=== PATIENT | female | born 1970 | race Caucasian/White ===

== ENCOUNTER 2017-07-06 07:24 | Emergency (ER) | payer OTHER ==
[~2017-07-06] VITALS: Ht 160 cm; Wt 90.9 kg
[~2017-07-06 07:24] MED LIST: 00186-0370-20 IH; ABILIFY2 MG PO; ALBUTEROL SULFAT3 M3 IH; ALBUTEROL0.09 MG/A3 IH; ALLEGRA 60MG TA60 MG PO; ALLEGRA180 MG PO; AMITIZA 8MCG8 MCG; AMITIZA24 MCG PO; AMITRIPTYLINE H75 M1 PO; AMITRIPTYLINE100 MG PO; AUGMENTIN 875 M1 TAB PO; AUGMENTIN XR 101 TER PO; AUGMENTIN875 MG/TAB PO; BENTYL 10MG10 MG/CAP PO; BENTYL 20MG20 MG/TAB PO; BETA BLOCKER; BUDESONIDE1 POW; BYSTOLIC PO; CARDIZEM 60MG T60 MG; CARDIZEM LA120 MG PO; CEFTIN500 MG PO; COMBIVENT INH14.7 GM IH; DEXILANT60 MG PO; FLONASE NASAL S16 GM NS; LEVAQUIN 5500 MG/TA1 PO; LEVOTHROID0.125 MG PO; LEVOXYL0.125 MG PO; LIORESAL 1010 MG/TAB; LORTAB 5/500 501 TAB PO; MUSCLE RELAXANT; MYCOSTATIN100000 U/1 TP; NEXIUM PO; NORCO 325 MG-51 TAB PO; PERCOCET 325 MG1 TA2 PO; PERCOCET 5/321 UDTAB PO; PHENERGAN 25 TA25 MG PO; PRILOSEC 20MG20 MG PO; PRILOSEC40 MG PO; PROVENTIL0.09 MG/A1 IH; REGLAN 10MG10 MG/TAB PO; RT ADVAIR 128 DISKUS IH; SEREVENT; SINGULAIR10 MG PO; TAMIFLU 75MG75 MG PO; TENORMIN 5050 MG/TAB PO; TENORMIN100 MG PO; TORADOL 10MG TA10 MG PO; TYLENOL #4 (1 UDTAB PO; ULTRAM 50MG TAB50 MG PO; VENTOLIN0.09 MG IH; XANAX 0.5MG0.5 MG PO; ZOFRAN 4MG T4 MG/TAB PO; ZOLOFT 50MG50 MG PO; [UNRECOGNIZED DRUG - OTHER]; [UNRECOGNIZED DRUG - OTHER]; [UNRECOGNIZED DRUG - REMARK]
[2017-07-06 07:27] VITALS: BP 121/75; PULSE 91; TEMP 98.2
[2017-07-06] MEDS ORDERED: TESSALON P100 MG/CAP PO (08:04)
== END 2017-07-06 08:35 | disposition home or self-care (01) ==
LOC: COL.ER 07:24
DX: J06.9 Acute upper respiratory infection, unspecified (principal); J45.909 Unspecified asthma, uncomplicated; Z79.51 Long term (current) use of inhaled steroids

== ENCOUNTER → 2017-07-22 | Outpatient (CLI) | payer OTHER ==
[~2017-07-22] MED LIST changes: +TESSALON P100 MG/CAP PO
== END ==
LOC: BHSO 08:47
DX: F33.1 Major depressive disorder, recurrent, moderate (principal)

== ENCOUNTER → 2017-08-28 | Outpatient (CLI) | payer OTHER | LOC: BHSO 14:58 | DX: F33.0 Major depressive disorder, recurrent, mild (principal) ==

== ENCOUNTER → 2017-10-15 | Outpatient (CLI) | payer OTHER | LOC: BHSO 14:49 | DX: F41.1 Generalized anxiety disorder (principal) ==

== ENCOUNTER → 2017-11-12 | Outpatient (CLI) | payer OTHER | LOC: BHSO 10:53 | DX: F33.1 Major depressive disorder, recurrent, moderate (principal) ==

== ENCOUNTER → 2017-12-04 | Outpatient (CLI) | payer OTHER | LOC: BHSO 13:58 | DX: F33.1 Major depressive disorder, recurrent, moderate (principal) ==

== ENCOUNTER → 2017-12-11 | Outpatient (CLI) | payer OTHER | LOC: BHSO 13:56 | DX: F41.1 Generalized anxiety disorder (principal) ==

== ENCOUNTER → 2017-12-18 | Outpatient (CLI) | payer OTHER | LOC: BHSO 14:05 | DX: F33.1 Major depressive disorder, recurrent, moderate (principal) ==

== ENCOUNTER → 2018-01-01 | Outpatient (CLI) | payer OTHER | LOC: BHSO 14:56 | DX: F33.1 Major depressive disorder, recurrent, moderate (principal) ==

== ENCOUNTER → 2018-01-15 | Outpatient (CLI) | payer OTHER | LOC: BHSO 15:09 | DX: F33.0 Major depressive disorder, recurrent, mild (principal) ==

== ENCOUNTER → 2018-01-22 | Outpatient (CLI) | payer OTHER | LOC: BHSO 14:41 | DX: F41.1 Generalized anxiety disorder (principal) ==

== ENCOUNTER → 2018-02-05 | Outpatient (CLI) | payer OTHER | LOC: BHSO 15:06 | DX: F33.1 Major depressive disorder, recurrent, moderate (principal) ==

== ENCOUNTER → 2018-02-16 | Outpatient (CLI) | payer OTHER | LOC: BHSO 14:59 | DX: F33.1 Major depressive disorder, recurrent, moderate (principal) ==

== ENCOUNTER 2018-02-22 04:49 | Emergency (ER) | payer OTHER ==
[~2018-02-22] VITALS: Ht 160 cm; Wt 90.9 kg
[2018-02-22 04:56] VITALS: TEMP 97.7
[2018-02-22] MEDS ORDERED: CARDIZEM 30MG T30 MG PO (05:36)
[2018-02-22] MEDS ORDERED: BENTYL 10MG10 MG/CAP PO (05:37)
[2018-02-22] MEDS ORDERED: DEXILANT30 MG PO (05:37)
[2018-02-22] MEDS ORDERED: ALLEGRA 60MG TA60 MG PO (05:37)
[2018-02-22] MEDS ORDERED: VIIBRYD10 MG PO (05:37)
[2018-02-22] MEDS ORDERED: FIORICET 325 MG1 TA1 PO (05:38)
[2018-02-22] MEDS ORDERED: SOMA250 MG PO (05:39)
[2018-02-22] MEDS ORDERED: DECADRON 0.0.1 MG/ML PO (05:39)
[2018-02-22] MEDS ORDERED: BROVANA15 MCG/2 M IH (05:41)
[2018-02-22 05:50] LABS: BASO # 0.1 (0.0-0.2); BASO % 0.4 % (0.0-2.0); GRAN # 19.9 (1.4-6.5); GRAN % 79.4 % (42.2-75.2); HEMATOCRIT 39.6 % (37.0-47.0); HEMOGLOBIN 12.7 g/dl (12.5-16.0); LYMPH # 2.6 (1.2-3.4); LYMPH % 10.2 % (20.0-51.0); MEAN CELL VOLUME 93 fl (80.0-100.0); MEAN CORPUSCULAR HEMOGLOBIN 30 pg (27.0-31.0); MEAN CORPUSCULAR HGB CONC 32 g/dl (33.0-37.0); MEAN PLATELET VOLUME 9.4 fl (7.4-10.4); MONO # 1.6 (0.1-0.6); MONO % 6.2 % (1.7-9.3); PLATELET COUNT 365 K/mm3 (130-400); RED BLOOD COUNT 4.27 M/mm3 (4.10-5.30); REDCELL DISTRIBUTION WIDTH-CV 13.5 % (11.5-14.5)
[2018-02-22 06:07] LABS: C-REACTIVE PROTEIN 0.6 mg/dL (0.0-0.9); CALCIUM 9.7 mg/dL (8.4-10.2); CREATININE, serum 0.63 mg/dL (0.52-1.25); POTASSIUM 4.6 mmol/L (3.4-5.0)
[2018-02-22 06:41] LABS: BAND 4 % (0-10); LYMPHOCYTE 15 % (20.0-51.0); NEUTROPHILS 78 % (42.0-75.2)
[2018-02-22] MEDS ORDERED: PHENERGAN W/CO120 M1 PO (08:27)
[2018-02-22 08:59] VITALS: BP 125/80; PULSE 91
== END 2018-02-22 09:03 | disposition home or self-care (01) ==
LOC: COL.ER 04:49
PROVIDERS: Emergency Medicine
DX: J98.01 Acute bronchospasm (principal); F41.9 Anxiety disorder, unspecified; E03.9 Hypothyroidism, unspecified; Z98.890 Other specified postprocedural states
CPT/HCPCS: J1200; J2930; J7030; Q9967

== ENCOUNTER → 2018-03-05 | Outpatient (CLI) | payer OTHER, BC ==
[~2018-03-05] MED LIST changes: +BROVANA15 MCG/2 M IH; +CARDIZEM 30MG T30 MG PO; +DECADRON 0.0.1 MG/ML PO; +DEXILANT30 MG PO; +FIORICET 325 MG1 TA1 PO; +PHENERGAN W/CO120 M1 PO; +SOMA250 MG PO; +VIIBRYD10 MG PO
== END ==
LOC: BHSO 15:12
DX: F33.1 Major depressive disorder, recurrent, moderate (principal)

== ENCOUNTER → 2018-04-23 | Outpatient (CLI) | payer OTHER, BC | LOC: BHSO 13:56 | DX: F33.1 Major depressive disorder, recurrent, moderate (principal) ==

== ENCOUNTER → 2018-05-28 | Outpatient (CLI) | payer OTHER, BC | LOC: BHSO 14:19 | DX: F31.11 Bipolar disorder, current episode manic without psychotic features, mild (principal) ==

== ENCOUNTER → 2018-06-10 | Outpatient (CLI) | payer OTHER, BC | LOC: BHSO 13:58 | DX: F33.1 Major depressive disorder, recurrent, moderate (principal) ==

== ENCOUNTER 2018-07-10 19:08 | Emergency (ER) | payer BC, OTHER ==
[~2018-07-10] VITALS: Ht 160 cm; Wt 100.0 kg
[2018-07-10 19:16] VITALS: BP 128/79; PULSE 99; TEMP 98
== END 2018-07-10 21:39 | disposition left against medical advice (07) ==
LOC: COL.ER 19:08
DX: M25.552 Pain in left hip (principal)

== ENCOUNTER → 2018-07-17 | Outpatient (CLI) | payer BC, OTHER | LOC: BHSO 09:05 | DX: F31.11 Bipolar disorder, current episode manic without psychotic features, mild (principal) ==

== ENCOUNTER → 2018-07-31 | Outpatient (CLI) | payer BC, OTHER ==
[~2018-07-31] MED LIST changes: +ATARAX 25MG25 MG/TAB PO
== END ==
LOC: BHSO 13:04
DX: F31.11 Bipolar disorder, current episode manic without psychotic features, mild (principal)

== ENCOUNTER 2018-08-03 16:08 | Emergency (ER) | payer BC, OTHER ==
[~2018-08-03] VITALS: Ht 157.5 cm; Wt 81.8 kg
[~2018-08-03 16:08] MED LIST changes: -ATARAX 25MG25 MG/TAB PO
[2018-08-03 16:20] VITALS: TEMP 97
[2018-08-03 17:44] LABS: ALANINE AMINOTRANSFERASE 19 U/L (9-52); ALBUMIN 4.4 gm/dL (3.5-5.0); ALKALINE PHOSPHATASE 83 U/L (50-136); ANION GAP 11 mmol/L (7-16); AST,SGOT 28 U/L (15-37); BASO # 0.1 (0.0-0.2); BASO % 0.4 % (0.0-2.0); BILIRUBIN,TOTAL 0.7 mg/dL (0.0-1.0); BLOOD UREA NITROGEN 11 mg/dL (7-17); CALCIUM 10.2 mg/dL (8.4-10.2); CARBON DIOXIDE 26 mmol/L (22-30); CHLORIDE 104 mmol/L (98-107); CREATININE, serum 0.66 mg/dL (0.52-1.25); EOS # 0.1 (0.0-0.7); EOS % 0.6 % (0-4.0); GLUCOSE 105 mg/dL (74-106); GRAN # 10.5 (1.4-6.5); HEMATOCRIT 42.9 % (37.0-47.0); HEMOGLOBIN 14.4 g/dl (12.5-16.0); LYMPH # 3.7 (1.2-3.4); LYMPH % 24.4 % (20.0-51.0); MEAN CELL VOLUME 87 fl (80.0-100.0); MEAN CORPUSCULAR HEMOGLOBIN 29 pg (27.0-31.0); MEAN CORPUSCULAR HGB CONC 34 g/dl (33.0-37.0); MEAN PLATELET VOLUME 10.7 fl (7.4-10.4); MONO # 0.8 (0.1-0.6); MONO % 5.1 % (1.7-9.3); PLATELET COUNT 386 K/mm3 (130-400); POTASSIUM 3.6 mmol/L (3.4-5.0); RED BLOOD COUNT 4.94 M/mm3 (4.10-5.30); SODIUM 141 mmol/L (137-145); TOTAL PROTEIN 7.8 gm/dL (6.4-8.2)
[2018-08-03 18:04] LABS: TROPONIN-I < 0.012 ng/mL (0.000-0.035)
[2018-08-03] MEDS ORDERED: ATARAX 25MG25 MG/TAB PO (19:20)
[2018-08-03 19:31] VITALS: BP 115/76; PULSE 103
[2018-08-04] MEDS ORDERED: ATARAX 25MG25 MG/TAB PO (10:30)
== END 2018-08-03 19:31 | disposition home or self-care (01) ==
LOC: COL.ER 16:08
PROVIDERS: Physician Assistant
DX: R07.89 Other chest pain (principal); F41.9 Anxiety disorder, unspecified; K21.9 Gastro-esophageal reflux disease without esophagitis; E03.9 Hypothyroidism, unspecified; G43.909 Migraine, unspecified, not intractable, without status migrainosus; Z90.710 Acquired absence of both cervix and uterus; Z79.51 Long term (current) use of inhaled steroids
CPT/HCPCS: J2060; J7030

== ENCOUNTER → 2018-09-29 | Outpatient (CLI) | payer BC, OTHER ==
[~2018-09-29] MED LIST changes: +ATARAX 25MG25 MG/TAB PO
== END ==
LOC: BHSO 15:00
DX: F33.1 Major depressive disorder, recurrent, moderate (principal)

== ENCOUNTER → 2018-10-12 | Outpatient (CLI) | payer BC, OTHER | LOC: BHSO 15:04 | DX: F33.1 Major depressive disorder, recurrent, moderate (principal) ==

== ENCOUNTER → 2018-10-27 | Outpatient (CLI) | payer BC, OTHER ==
[~2018-10-27] MED LIST changes: +TESSALON PERLE200 MG PO
== END ==
LOC: BHSO 13:59
DX: F33.1 Major depressive disorder, recurrent, moderate (principal)

== ENCOUNTER 2018-11-01 22:51 | Emergency (ER) | payer BC, OTHER ==
[~2018-11-01] VITALS: Ht 157.5 cm; Wt 94.5 kg
[~2018-11-01 22:51] MED LIST changes: -TESSALON PERLE200 MG PO
[2018-11-01 22:53] VITALS: TEMP 98
[2018-11-02] MEDS ORDERED: TESSALON PERLE200 MG PO (01:23)
[2018-11-02 01:46] VITALS: BP 91/53; PULSE 110
== END 2018-11-02 01:46 | disposition home or self-care (01) ==
LOC: COL.ER 22:51
DX: J45.901 Unspecified asthma with (acute) exacerbation (principal); I10 Essential (primary) hypertension; Z90.710 Acquired absence of both cervix and uterus; Z98.51 Tubal ligation status; Z79.51 Long term (current) use of inhaled steroids
CPT/HCPCS: J1200; J2060; J3010; J3105; J7030

== ENCOUNTER → 2018-11-25 | Outpatient (CLI) | payer BC, OTHER ==
[~2018-11-25] MED LIST changes: +TESSALON PERLE200 MG PO
== END ==
LOC: COL.RAD 08:33
DX: K21.9 Gastro-esophageal reflux disease without esophagitis (principal); J38.3 Other diseases of vocal cords; Z98.890 Other specified postprocedural states

== ENCOUNTER → 2018-12-21 | Outpatient (CLI) | payer BC, OTHER | LOC: BHSO 13:57 | DX: F31.81 Bipolar II disorder (principal) ==

== ENCOUNTER → 2019-01-15 | Outpatient (CLI) | payer BC, OTHER | LOC: BHSO 14:00 | DX: F33.1 Major depressive disorder, recurrent, moderate (principal) ==

== ENCOUNTER → 2019-02-05 | Outpatient (CLI) | payer BC, OTHER | LOC: BHSO 15:56 | DX: F33.0 Major depressive disorder, recurrent, mild (principal) ==

== ENCOUNTER → 2019-02-17 | Outpatient (CLI) | payer BC, OTHER | LOC: BHSO 14:11 | DX: F31.81 Bipolar II disorder (principal) ==

== ENCOUNTER → 2019-02-26 | Outpatient (CLI) | payer BC, OTHER | LOC: BHSO 12:56 | DX: F33.0 Major depressive disorder, recurrent, mild (principal) ==

== ENCOUNTER → 2019-03-19 | Outpatient (CLI) | payer BC, OTHER | LOC: BHSO 14:12 | DX: F33.1 Major depressive disorder, recurrent, moderate (principal) ==

== ENCOUNTER → 2019-03-26 | Outpatient (CLI) | payer BC, OTHER | LOC: BHSO 13:59 | DX: F33.0 Major depressive disorder, recurrent, mild (principal) ==

== ENCOUNTER → 2019-04-14 | Outpatient (CLI) | payer BC, OTHER | LOC: BHSO 09:05 | DX: F33.1 Major depressive disorder, recurrent, moderate (principal) ==

== ENCOUNTER → 2019-06-10 | Outpatient (CLI) | payer BC, OTHER | LOC: BHSO 09:06 | DX: F33.1 Major depressive disorder, recurrent, moderate (principal) ==

== ENCOUNTER → 2019-06-25 | Outpatient (CLI) | payer BC, OTHER | LOC: BHSO 13:05 | DX: F33.1 Major depressive disorder, recurrent, moderate (principal) ==

== ENCOUNTER 2019-07-30 16:07 | Emergency (ER) | payer BC, OTHER | END 2019-07-30 16:16 | disposition left against medical advice (07) | LOC: COL.ER 16:07 | DX: Z72.9 Problem related to lifestyle, unspecified (principal); Z79.51 Long term (current) use of inhaled steroids ==

== ENCOUNTER 2019-07-31 15:49 | Emergency (ER) | payer BC, OTHER ==
[~2019-07-31] VITALS: Ht 157.5 cm; Wt 92.7 kg
[2019-07-31 16:41] LABS: COLLECTION METHOD CLEAN CATCH
[2019-07-31 16:45] LABS: BASO # 0.1 (0.0-0.2); BASO % 0.5 % (0.0-2.0); EOS # 0.4 (0.0-0.7); EOS % 3.4 % (0-4.0); GRAN # 8.1 (1.4-6.5); GRAN % 64.5 % (42.2-75.2); HEMATOCRIT 39.2 % (37.0-47.0); HEMOGLOBIN 12.7 g/dl (12.5-16.0); MEAN CELL VOLUME 88 fl (80.0-100.0); MEAN CORPUSCULAR HEMOGLOBIN 29 pg (27.0-31.0); MEAN CORPUSCULAR HGB CONC 32 g/dl (33.0-37.0); MEAN PLATELET VOLUME 9.7 fl (7.4-10.4); MONO # 0.8 (0.1-0.6); MONO % 6.6 % (1.7-9.3); PLATELET COUNT 315 K/mm3 (130-400); RED BLOOD COUNT 4.44 M/mm3 (4.10-5.30); REDCELL DISTRIBUTION WIDTH-CV 13.9 % (11.5-14.5)
[2019-07-31 16:48] LABS: MUCOUS Present /lpf; PH 6 (5-8); SQUAMOUS EPITHELIAL 0-2 /hpf; URINE APPEARANCE Clear; URINE BACTERIA None Seen /hpf; URINE BILIRUBIN Negative (NEGATIVE); URINE BLOOD Negative (NEGATIVE); URINE COLOR Yellow; URINE GLUCOSE Negative (NEGATIVE); URINE KETONE Negative (NEGATIVE); URINE LEUKOCYTE ESTERASE Negative (NEGATIVE); URINE NITRATE Negative (NEGATIVE); URINE PROTEIN(semi-quant) Negative (NEGATIVE); URINE RBC 0-2 /hpf; URINE UROBILINOGEN Negative (NEGATIVE)
[2019-07-31 16:50] LABS: ALBUMIN 4.3 gm/dL (3.5-5.0); BILIRUBIN,TOTAL 0.4 mg/dL (0.0-1.0); CALCIUM 9.7 mg/dL (8.4-10.2); CREATININE, serum 0.66 (0.52-1.25); POTASSIUM 4.2 mmol/L (3.4-5.0); TOTAL PROTEIN 7.5 gm/dL (6.4-8.2)
[2019-07-31 19:45] VITALS: BP 112/72; PULSE 76; TEMP 97.8
== END 2019-07-31 19:50 | disposition home or self-care (01) ==
LOC: COL.ER 15:49
PROVIDERS: Nurse Practitioner
DX: R07.89 Other chest pain (principal); R10.9 Unspecified abdominal pain; J45.909 Unspecified asthma, uncomplicated; Z79.51 Long term (current) use of inhaled steroids
CPT/HCPCS: J1200; J2930; Q9967

== ENCOUNTER → 2019-10-26 | Outpatient (CLI) | payer BC, OTHER | LOC: BHSO 14:00 → BHSTELE 14:00 | DX: F31.11 Bipolar disorder, current episode manic without psychotic features, mild (principal) ==

== ENCOUNTER → 2019-10-27 | Outpatient (CLI) | payer BC, OTHER | LOC: COL.RAD 08:30 | DX: R16.0 Hepatomegaly, not elsewhere classified (principal); Z90.710 Acquired absence of both cervix and uterus ==

== ENCOUNTER → 2019-11-17 | Outpatient (CLI) | payer BC, OTHER | LOC: BHSO 13:51 | DX: F33.1 Major depressive disorder, recurrent, moderate (principal) ==

== ENCOUNTER → 2019-12-24 | Outpatient (CLI) | payer BC, OTHER | LOC: BHSO 13:53 | DX: F31.11 Bipolar disorder, current episode manic without psychotic features, mild (principal) ==

== ENCOUNTER → 2020-01-21 | Outpatient (CLI) | payer BC, OTHER | LOC: BHSO 13:03 | DX: F33.1 Major depressive disorder, recurrent, moderate (principal) ==

== ENCOUNTER 2020-01-29 03:12 | Emergency (ER) | payer BC, OTHER ==
[~2020-01-29] VITALS: Ht 160 cm; Wt 93.2 kg
[2020-01-29 03:16] VITALS: TEMP 98.6
[2020-01-29] MEDS ORDERED: KLONOPIN WAFER0.5 MG PO (03:31)
[2020-01-29] MEDS ORDERED: KLONOPIN 0.5MG0.5 MG PO (04:14)
[2020-01-29 05:07] VITALS: BP 117/90; PULSE 83
== END 2020-01-29 05:07 | disposition home or self-care (01) ==
LOC: COL.ER 03:12
DX: M54.5 Low back pain (principal); I10 Essential (primary) hypertension; J45.909 Unspecified asthma, uncomplicated; E03.9 Hypothyroidism, unspecified; Z90.710 Acquired absence of both cervix and uterus; Z79.890 Hormone replacement therapy
CPT/HCPCS: J1100; J1885; J2060; J2270

== ENCOUNTER 2020-01-31 09:41 | Emergency (ER) | payer BC, OTHER ==
[~2020-01-31] VITALS: Ht 160 cm; Wt 93.2 kg
[~2020-01-31 09:41] MED LIST changes: +KLONOPIN 0.5MG0.5 MG PO; +KLONOPIN WAFER0.5 MG PO
[2020-01-31 11:17] LABS: HEMATOCRIT 41.8 % (37.0-47.0); HEMOGLOBIN 13.5 g/dl (12.5-16.0); MEAN CELL VOLUME 92 fl (80.0-100.0); MEAN CORPUSCULAR HEMOGLOBIN 30 pg (27.0-31.0); MEAN CORPUSCULAR HGB CONC 32 g/dl (33.0-37.0); PLATELET COUNT 297 K/mm3 (130-400); RED BLOOD COUNT 4.54 M/mm3 (4.10-5.30); REDCELL DISTRIBUTION WIDTH-CV 14.2 % (11.5-14.5)
[2020-01-31 11:29] LABS: ALBUMIN 4.1 gm/dL (3.5-5.0); BILIRUBIN,TOTAL 0.3 mg/dL (0.0-1.0); C-REACTIVE PROTEIN 0.8 mg/dL (0.0-0.9); CALCIUM 9.3 mg/dL (8.4-10.2); CREATININE, serum 0.7 (0.52-1.25); POTASSIUM 4.2 mmol/L (3.4-5.0); TOTAL PROTEIN 7.1 gm/dL (6.4-8.2)
[2020-01-31 11:57] LABS: LYMPHOCYTE 50 % (20.0-51.0); NEUTROPHILS 47 % (42.0-75.2); PLATELET ESTIMATE NORMAL (NORMAL)
[2020-01-31 11:58] LABS: ERYTHROCYTE SEDIMENTATION RATE 6 mm/hr (0-30)
[2020-01-31] MEDS ORDERED: PREDNISONE20 MG PO (12:19)
[2020-01-31] MEDS ORDERED: NORCO 325 MG-51 TAB PO (12:19)
[2020-01-31 12:30] VITALS: BP 134/72; PULSE 78; TEMP 97.6
[2020-01-31 12:53] LABS: COLLECTION METHOD CLEAN CATCH
[2020-01-31 13:00] LABS: PH 8 (5-8); SQUAMOUS EPITHELIAL None Seen /hpf; URINE APPEARANCE Clear; URINE BACTERIA None Seen /hpf; URINE BILIRUBIN Negative (NEGATIVE); URINE BLOOD Negative (NEGATIVE); URINE COLOR Straw; URINE GLUCOSE Negative (NEGATIVE); URINE KETONE Negative (NEGATIVE); URINE LEUKOCYTE ESTERASE Negative (NEGATIVE); URINE NITRATE Negative (NEGATIVE); URINE PROTEIN(semi-quant) Negative (NEGATIVE); URINE RBC 0-2 /hpf; URINE UROBILINOGEN Negative (NEGATIVE)
== END 2020-01-31 12:37 | disposition home or self-care (01) ==
LOC: COL.ER 09:41
PROVIDERS: Physician Assistant
DX: M54.5 Low back pain (principal); B34.9 Viral infection, unspecified; J45.909 Unspecified asthma, uncomplicated; K21.9 Gastro-esophageal reflux disease without esophagitis; Z90.710 Acquired absence of both cervix and uterus; Z87.891 Personal history of nicotine dependence; Z79.51 Long term (current) use of inhaled steroids; Z79.890 Hormone replacement therapy
CPT/HCPCS: J1885; J2270; J2405

== ENCOUNTER 2020-03-28 23:37 | Emergency (ER) | payer BC, OTHER ==
[~2020-03-28] VITALS: Ht 160 cm; Wt 97.7 kg
[~2020-03-28 23:37] MED LIST changes: +PREDNISONE20 MG PO
[2020-03-28 23:51] VITALS: TEMP 97.8
[2020-03-29 00:23] LABS: COLLECTION METHOD CLEAN CATCH
[2020-03-29 00:29] LABS: MUCOUS Present /lpf; PH 5 (5-8); SQUAMOUS EPITHELIAL 0-2 /hpf; URINE APPEARANCE Clear; URINE BACTERIA Rare /hpf; URINE BILIRUBIN Negative (NEGATIVE); URINE BLOOD Negative (NEGATIVE); URINE COLOR Straw; URINE GLUCOSE Negative (NEGATIVE); URINE KETONE Negative (NEGATIVE); URINE LEUKOCYTE ESTERASE Negative (NEGATIVE); URINE NITRATE Negative (NEGATIVE); URINE PROTEIN(semi-quant) Negative (NEGATIVE); URINE RBC 0-2 /hpf; URINE UROBILINOGEN Negative (NEGATIVE)
[2020-03-29] MEDS ORDERED: NORCO 325 MG-7.1 TAB PO (00:31)
[2020-03-29] MEDS ORDERED: VALIUM 2MG T2 MG/TAB PO (00:31)
[2020-03-29 01:45] VITALS: BP 107/72; PULSE 86
== END 2020-03-29 01:50 | disposition home or self-care (01) ==
LOC: COL.ER 23:37
PROVIDERS: Emergency Medicine
DX: M54.9 Dorsalgia, unspecified (principal); J45.909 Unspecified asthma, uncomplicated; Z90.710 Acquired absence of both cervix and uterus; Z88.2 Allergy status to sulfonamides; Z88.6 Allergy status to analgesic agent; Z88.1 Allergy status to other antibiotic agents; Z79.52 Long term (current) use of systemic steroids
CPT/HCPCS: J1170; J2060

== ENCOUNTER 2020-07-12 00:19 | Emergency (ER) | payer BC, OTHER ==
[~2020-07-12] VITALS: Ht 160 cm; Wt 104.1 kg
[~2020-07-12 00:19] MED LIST changes: +FLEXERIL 1010 MG/TAB PO; +NAPROSYN 2250 MG/TAB PO; +NORCO 325 MG-7.1 TAB PO; +ROBAXIN 50500 MG/TAB PO; +VALIUM 2MG T2 MG/TAB PO
[2020-07-12 00:24] VITALS: TEMP 98.1
[2020-07-12 01:05] LABS: BASO # 0.1 (0.0-0.2); BASO % 0.5 % (0.0-2.0); EOS # 0.1 (0.0-0.7); EOS % 1.1 % (0-4.0); GRAN # 7.8 (1.4-6.5); GRAN % 66.2 % (42.2-75.2); LYMPH # 3.2 (1.2-3.4); LYMPH % 26.9 % (20.0-51.0); MEAN CELL VOLUME 88 fl (80.0-100.0); MEAN CORPUSCULAR HEMOGLOBIN 29 pg (27.0-31.0); MEAN CORPUSCULAR HGB CONC 33 g/dl (33.0-37.0); MEAN PLATELET VOLUME 9.8 fl (7.4-10.4); MONO # 0.6 (0.1-0.6); MONO % 4.7 % (1.7-9.3); PLATELET COUNT 327 K/mm3 (130-400); RED BLOOD COUNT 4.45 M/mm3 (4.10-5.30); REDCELL DISTRIBUTION WIDTH-CV 12.8 % (11.5-14.5)
[2020-07-12 01:17] LABS: CALCIUM 10.1 mg/dL (8.4-10.2); CREATININE, serum 0.89 (0.52-1.25); POTASSIUM 4.3 mmol/L (3.4-5.0)
[2020-07-12 01:32] LABS: C-REACTIVE PROTEIN 0.7 mg/dL (0.0-0.9)
[2020-07-12 02:20] VITALS: BP 128/90; PULSE 70
== END 2020-07-12 02:32 | disposition home or self-care (01) ==
LOC: COL.ER 00:19
PROVIDERS: Emergency Medicine
DX: G43.909 Migraine, unspecified, not intractable, without status migrainosus (principal); J32.9 Chronic sinusitis, unspecified; J45.909 Unspecified asthma, uncomplicated; Z79.52 Long term (current) use of systemic steroids
CPT/HCPCS: J1100; J1200; J1885; J2765; J7030

== ENCOUNTER 2020-09-28 19:01 | Emergency (ER) | payer BC, OTHER ==
[~2020-09-28] VITALS: Ht 160 cm; Wt 107.7 kg
[2020-09-28 19:07] VITALS: TEMP 98.1
[2020-09-28 20:18] LABS: COLLECTION METHOD CLEAN CATCH
[2020-09-28 20:27] LABS: BASO # 0.1 (0.0-0.2); BASO % 0.5 % (0.0-2.0); EOS # 0.4 (0.0-0.7); EOS % 3.3 % (0-4.0); GRAN # 7.4 (1.4-6.5); GRAN % 57.3 % (42.2-75.2); HEMATOCRIT 40.5 % (37.0-47.0); HEMOGLOBIN 12.8 g/dl (12.5-16.0); LYMPH # 3.9 (1.2-3.4); LYMPH % 29.9 % (20.0-51.0); MEAN CELL VOLUME 85 fl (80.0-100.0); MEAN CORPUSCULAR HEMOGLOBIN 27 pg (27.0-31.0); MEAN CORPUSCULAR HGB CONC 32 g/dl (33.0-37.0); MEAN PLATELET VOLUME 10.1 fl (7.4-10.4); MONO % 7.8 % (1.7-9.3); PLATELET COUNT 428 K/mm3 (130-400); RED BLOOD COUNT 4.76 M/mm3 (4.10-5.30); REDCELL DISTRIBUTION WIDTH-CV 13.7 % (11.5-14.5)
[2020-09-28 20:29] LABS: PH 5 (5-8); SQUAMOUS EPITHELIAL 0-2 /hpf; URINE APPEARANCE Clear; URINE BACTERIA None Seen /hpf; URINE BILIRUBIN Negative (NEGATIVE); URINE BLOOD Negative (NEGATIVE); URINE COLOR Colorless; URINE GLUCOSE Negative (NEGATIVE); URINE KETONE Negative (NEGATIVE); URINE LEUKOCYTE ESTERASE Negative (NEGATIVE); URINE NITRATE Negative (NEGATIVE); URINE PROTEIN(semi-quant) Negative (NEGATIVE); URINE RBC 0-2 /hpf; URINE UROBILINOGEN Negative (NEGATIVE)
[2020-09-28 20:45] LABS: ALANINE AMINOTRANSFERASE 37 U/L (4-34); ALBUMIN 4.5 gm/dL (3.5-5.0); ALKALINE PHOSPHATASE 74 U/L (50-136); ANION GAP 9 mmol/L (7-16); AST,SGOT 44 U/L (15-37); BILIRUBIN,TOTAL < 0.1 mg/dL (0.0-1.0); BLOOD UREA NITROGEN 19 mg/dL (7-17); CALCIUM 9.8 mg/dL (8.4-10.2); CARBON DIOXIDE 27 mmol/L (22-30); CHLORIDE 103 mmol/L (98-107); CREATININE, serum 0.68 (0.52-1.25); GLUCOSE 96 mg/dL (74-106); LIPASE 59 U/L (23-300); POTASSIUM 4.2 mmol/L (3.4-5.0); SODIUM 139 mmol/L (137-145); TOTAL PROTEIN 7.8 gm/dL (6.4-8.2)
[2020-09-28 21:06] LABS: ACETAMINOPHEN < 10 ug/mL (10-30); ALCOHOL(ethanol),MEDICAL < 10 mg/dL; SALICYLATE < 1.0 mg/dL
[2020-09-28 23:55] VITALS: BP 124/76; PULSE 87
== END 2020-09-28 23:55 | disposition home or self-care (01) ==
LOC: COL.ER 19:01
PROVIDERS: Nurse Practitioner
DX: F32.9 Major depressive disorder, single episode, unspecified (principal); M25.531 Pain in right wrist; R05 Cough; R10.10 Upper abdominal pain, unspecified; J45.909 Unspecified asthma, uncomplicated; Z88.1 Allergy status to other antibiotic agents; Z88.2 Allergy status to sulfonamides; Z88.5 Allergy status to narcotic agent; Z88.6 Allergy status to analgesic agent; Z88.8 Allergy status to other drugs, medicaments and biological substances; Z79.51 Long term (current) use of inhaled steroids; Z79.890 Hormone replacement therapy; Z91.041 Radiographic dye allergy status
CPT/HCPCS: J1200; J2405; J2930; J7030; Q9967

== ENCOUNTER 2020-12-09 11:00 | Emergency (ER) | payer BC, OTHER ==
[~2020-12-09] VITALS: Ht 160 cm; Wt 95.5 kg
[2020-12-09 11:22] VITALS: TEMP 98.3
[2020-12-09 11:55] LABS: COLLECTION METHOD CLEAN CATCH
[2020-12-09 12:06] LABS: BASO # 0.1 (0.0-0.2); BASO % 0.4 % (0.0-2.0); EOS # 0.3 (0.0-0.7); EOS % 2.7 % (0-4.0); GRAN # 7.8 (1.4-6.5); GRAN % 68.4 % (42.2-75.2); HEMATOCRIT 40.1 % (37.0-47.0); HEMOGLOBIN 12.8 g/dl (12.5-16.0); LYMPH # 2.5 (1.2-3.4); LYMPH % 21.9 % (20.0-51.0); MEAN CELL VOLUME 83 fl (80.0-100.0); MEAN CORPUSCULAR HEMOGLOBIN 27 pg (27.0-31.0); MEAN CORPUSCULAR HGB CONC 32 g/dl (33.0-37.0); MONO # 0.7 (0.1-0.6); MONO % 5.9 % (1.7-9.3); PLATELET COUNT 341 K/mm3 (130-400); RED BLOOD COUNT 4.82 M/mm3 (4.10-5.30); REDCELL DISTRIBUTION WIDTH-CV 15.4 % (11.5-14.5)
[2020-12-09 12:06] LABS: PH 7 (5-8); SQUAMOUS EPITHELIAL 0-2 /hpf; URINE APPEARANCE Clear; URINE BACTERIA None Seen /hpf; URINE BILIRUBIN Negative (NEGATIVE); URINE BLOOD Negative (NEGATIVE); URINE COLOR Straw; URINE GLUCOSE Negative (NEGATIVE); URINE KETONE Negative (NEGATIVE); URINE LEUKOCYTE ESTERASE Negative (NEGATIVE); URINE NITRATE Negative (NEGATIVE); URINE PROTEIN(semi-quant) Negative (NEGATIVE); URINE RBC None Seen /hpf; URINE UROBILINOGEN Negative (NEGATIVE); URINE WBC 0-2 /hpf
[2020-12-09 12:08] LABS: ALBUMIN 4.3 gm/dL (3.5-5.0); BILIRUBIN,TOTAL 0.3 mg/dL (0.0-1.0); CALCIUM 10.4 mg/dL (8.4-10.2); CREATININE, serum 0.62 (0.52-1.25); TOTAL PROTEIN 7.6 gm/dL (6.4-8.2)
[2020-12-09] MEDS ORDERED: PREDNISONE20 MG PO (13:28)
[2020-12-09] MEDS ORDERED: NORCO 325 MG-51 TAB PO (13:28)
[2020-12-09 13:48] VITALS: BP 107/69; PULSE 84
== END 2020-12-09 13:48 | disposition home or self-care (01) ==
LOC: COL.ER 11:00
PROVIDERS: Nurse Practitioner Primary Care
DX: M54.5 Low back pain (principal); E03.9 Hypothyroidism, unspecified; K21.9 Gastro-esophageal reflux disease without esophagitis; Z88.5 Allergy status to narcotic agent; Z79.890 Hormone replacement therapy; Z79.899 Other long term (current) drug therapy
CPT/HCPCS: J1100

== ENCOUNTER 2021-06-24 18:18 | Emergency (ER) | payer OTHER ==
[~2021-06-24] VITALS: Ht 160 cm; Wt 100.0 kg
[2021-06-24 18:31] VITALS: TEMP 98.1
[2021-06-24 19:23] LABS: HEMOGLOBIN 13.4 g/dl (12.5-16.0); MEAN CELL VOLUME 85 fl (80.0-100.0); MEAN CORPUSCULAR HEMOGLOBIN 28 pg (27-31); MEAN CORPUSCULAR HGB CONC 33 g/dl (33.0-37.0); MEAN PLATELET VOLUME 9.7 fl (7.4-10.4); PLATELET COUNT 413 K/mm3 (130-400); RED BLOOD COUNT 4.81 M/mm3 (4.10-5.30); REDCELL DISTRIBUTION WIDTH-CV 14.7 % (11.5-14.5)
[2021-06-24 19:47] LABS: ALANINE AMINOTRANSFERASE 28 U/L (0-55); ALKALINE PHOSPHATASE 90 U/L (40-150); ANION GAP 12 mmol/L (7-16); AST,SGOT 29 U/L (5-34); BILIRUBIN,TOTAL 0.3 mg/dL (0.2-1.2); BLOOD UREA NITROGEN 19 mg/dL (10-20); C-REACTIVE PROTEIN 0.69 mg/dL (0.00-0.50); CALCIUM 9.6 mg/dL (8.4-10.2); CARBON DIOXIDE 25 mmol/L (22-29); CHLORIDE 104 mmol/L (98-107); CREATININE, serum 0.86 mg/dL (0.57-1.11); GLUCOSE 90 mg/dL (70-99); POTASSIUM 3.8 mmol/L (3.5-4.5); SODIUM 141 mmol/L (136-145); TOTAL PROTEIN 7.6 gm/dL (6.2-8.1)
[2021-06-24 19:57] LABS: TROPONIN-I < 0.010 ng/mL (0.00-0.033)
[2021-06-24 20:07] LABS: BAND 4 % (0-10); EOSINOPHIL 1 % (0-4); LYMPHOCYTE 22 % (20.0-51.0); NEUTROPHILS 69 % (42.0-75.2); OVALOCYTES 1+; PLATELET ESTIMATE INCREASED (NORMAL)
[2021-06-24 21:29] VITALS: BP 126/85; PULSE 92
== END 2021-06-24 21:29 | disposition home or self-care (01) ==
LOC: COL.ER 18:18
PROVIDERS: Nurse Practitioner
DX: J45.909 Unspecified asthma, uncomplicated (principal); K21.9 Gastro-esophageal reflux disease without esophagitis; Z87.891 Personal history of nicotine dependence; Z20.822 Contact with and (suspected) exposure to COVID-19; Z79.899 Other long term (current) drug therapy
CPT/HCPCS: J1100; J2405

== ENCOUNTER 2021-09-19 20:03 | Emergency (ER) | payer BC, OTHER ==
[~2021-09-19] VITALS: Ht 160 cm; Wt 102.7 kg
[2021-09-19 20:08] VITALS: TEMP 97.2
[2021-09-19 22:55] VITALS: BP 140/93; PULSE 90
== END 2021-09-19 22:55 | disposition home or self-care (01) ==
LOC: COL.ER 20:03
DX: J20.9 Acute bronchitis, unspecified (principal); Z87.891 Personal history of nicotine dependence
CPT/HCPCS: J1100

== ENCOUNTER → 2023-06-24 | Outpatient (CLI) | payer BC, OTHER ==
[~2023-06-24] MED LIST changes: +AMOXICILLIN 8751 TAB PO; +Albuterol 0.083% Neb Soln 2.5 MG/3 ML UD IH ONE; +PREDNISONE10 MG PO
== END ==
LOC: COL.CARD 15:07
DX: J32.9 Chronic sinusitis, unspecified (principal); J40 Bronchitis, not specified as acute or chronic